=== PATIENT | female | born 1990 | race Caucasian/White ===

== ENCOUNTER → 2020-09-09 08:10 | Outpatient (BNVA) | payer OTHER, SELFPAY | PROVIDERS: PCP Internal Medicine; Visit Provider Surgery ==

== ENCOUNTER 2022-03-29 18:59 | Inpatient (IN) | payer OTHER, SELFPAY ==
--- NOTE | ~2022-03-29 | CT_ITS ---
EXAMINATION: CT ABDOMEN AND PELVIS WITHOUT CONTRAST CLINICAL INFORMATION: Abdominal pain COMPARISON: None TECHNIQUE: Multidetector volumetric imaging was performed from the superior aspect of the liver through the pubic symphysis. Sagittal and coronal reformatted images were obtained on the technologist's workstation. This CT examination was performed using dose optimization techniques as appropriate, variously including the following: *Automated exposure control *Adjustment of mA and/or kV according to patient size (this includes techniques or standardized protocols for targeted exams where dose is matched to indication/reason for exam; i.e. extremities or head) *Use of iterative reconstruction technique DLP: 1233 mGy-cm FINDINGS: LUNG BASES: The visualized lung bases are unremarkable. LIVER, GALLBLADDER, AND BILIARY TREE: The liver is normal in size, shape, and attenuation. No focal hepatic lesion or biliary ductal dilatation is present. The gallbladder has been removed. PANCREAS: Unremarkable. SPLEEN: Unremarkable. ADRENAL GLANDS: Unremarkable. KIDNEYS AND URETERS: There is a small 1 to 2 mm nonobstructing stone in the lower pole of the left kidney. Kidneys are otherwise normal. No hydronephrosis, ureteral dilatation or ureteral stone. BLADDER: Unremarkable. GASTROINTESTINAL TRACT: The cecum and right colon are slightly distended and fluid-filled. The small and large bowel are otherwise unremarkable. The appendix is not seen. There are no inflammatory changes in the right lower quadrant. ABDOMINAL WALL: No significant hernia is appreciated. LYMPH NODES: Normal. VASCULAR: Unremarkable. PELVIC VISCERA: Unremarkable. OSSEOUS STRUCTURES: Unremarkable. CT/CT abdomen pelvis wo IV con IMPRESSION: Small nonobstructing left renal stone. Slightly distended fluid-filled cecum and right colon probably representing an ileus. Fleischner guidelines were followed.
[2022-03-29 19:10] VITALS: BP 132/63; PULSE 130; RESP 18; TEMP 37.9; O2SAT 100; BMI 42.8
--- NOTE | 2022-03-29 19:13 | ECG_ITS ---
Test Reason : TACHYCARDIA Blood Pressure : / mmHG Vent. Rate : 131 BPM Atrial Rate : 131 BPM P-R Int : 154 ms QRS Dur : 076 ms QT Int : 278 ms P-R-T Axes : 028 048 -04 degrees QTc Int : 410 ms Sinus tachycardia Otherwise normal ECG No previous ECGs available Referred By: Generic ED Physician Electronically Signed By:GENEVIEVE DO
[2022-03-29] MEDS: Ondansetron ODT 4 MG TAB.RAPDIS TRANSLINGU (19:27)
[2022-03-29 19:34] LABS: MANUAL DIFF FLAG NO
[2022-03-29 19:40] LABS: Basophils Percent Auto 0.3 % (0-2); Hematocrit 37.9 % (37.0-47.0); Hemoglobin 12.3 g/dl (12.0-16.0); Imm Gran Abs Auto 0.03 X10*3/uL (0.00-0.03); Imm Gran Pct Auto 0.3 % (0.0-0.4); Lymphocytes Absolute Auto 1.6 X10*3/uL (1.2-4.9); Lymphocytes Percent Auto 17.7 % (20-40); Mean Corpuscular HGB Conc 32.5 g/dl (31.0-35.0); Mean Corpuscular Hemoglobin 27.8 pg (27.0-33.0); Mean Corpuscular Volume 85.6 fL (80.0-98.0); Mean Platelet Volume 11.2 fL (9.4-12.3); Monocytes Absolute Auto 1.2 X10*3/uL (0.1-1.2); Monocytes Percent Auto 13.3 % (2-11); Neutrophils Percent Auto 68.4 % (45-73); Platelet Count 316 X10*3/uL (160-400); Red Blood Count 4.43 X10*6/uL (4.20-5.50); Red Cell Distribution Width 13.2 % (11.0-16.0); White Blood Count 8.8 X10*3/uL (4.8-10.8)
[2022-03-29 19:42] LABS: Appearance Urine Turbid; Color Urine Dark Yellow; Glucose Urine UA Negative (Negative); Leukocyte Esterase Urine Moderate (2+) (Negative); Nitrite Urine Negative (Negative); PH 6.5 (5.0-9.0); Urine Blood Negative (Negative); Urine Ketones Trace mg/dL (Negative); Urine Protein 30 (1+) mg/dL (Neg-Trace)
[2022-03-29 19:43] LABS: UPreg QC Valid YES; Urine Pregnancy NEGATIVE (NEGATIVE)
[2022-03-29 19:53] LABS: COVID-19 Test Negative (Negative); IDNOW Serial# 16C4AD1C
[2022-03-29 19:55] LABS: Lactic Acid 0.6 mmol/L (0.5-2.0)
[2022-03-29 20:00] LABS: Alanine Aminotransferase 14 U/L (0-31); Albumin Level 4.7 g/dL (3.5-5.0); Alkaline Phosphatase 73 U/L (39-117); Anion Gap 17 (12-20); Aspartate Amino Transferase 18 U/L (5-31); Bilirubin Direct 0.5 mg/dL (0.0-0.5); Bilirubin Total 1.1 mg/dL (0.0-1.0); Blood Urea Nitrogen 9 mg/dL (9-16); Calcium 9.3 mg/dL (8.4-10.2); Carbon Dioxide 23 mmol/L (22-29); Chloride 101 mmol/L (96-108); Creatinine Clr Calc Pharmacy 109.2; Estimated Glomerular Filt Rate > 60; Glucose Random 108 mg/dL (60-115); Potassium 3.7 mmol/L (3.3-5.1); Sodium 137 mmol/L (135-145); Total Protein 7.9 g/dL (6.5-8.0)
[2022-03-29 20:02] LABS: Bacteria Urine 4+ (None Seen); Hyaline Casts Urine 0-2 /LPF (0-2); Squamous Epithelial Cell Urine >20 /HPF (0-2); UACC Culture Trigger YES; WBC Urine 21-50 /HPF (0-5)
--- NOTE | 2022-03-29 21:26 | ED_ITS ---
HPI - Abdominal Pain General Chief Complaint: Abdominal Pain Stated Complaint: back pain/fever Source: patient Mode of arrival: ambulatory Limitations: no limitations History of Present Illness HPI narrative: 31-year-old female presents with 2 weeks of back pain, shortness of breath, nausea, vomiting, palpitations, and intermittent fevers as high as 105. She has had poor p.o. intake, low urine output, and states to feel awful. She has not had the ability to come in for evaluation because she was preparing her children for school, and her works as a regional intermodal truck driver. She does not report chest pain or pressure, abdominal distention, edema, changes in vision, diarrhea, or confusion MD elicited complaint: abdominal pain and flank pain Pertinent past history: none Onset (ago): week(s) (2) Pain Consistency: constant Location: diffuse, L flank and R flank Severity: severe Pain scale (0-10): 8 Quality: aching Exacerbating factors: eating, vomiting and movement Relieving factors: nothing Associated symptoms: nausea, vomiting, fever, chills and anorexia Treatments prior to arrival: NSAIDs Related Data Allergies Allergy/AdvReac Type Severity Reaction Status Date / Time codeine AdvReac Nausea and Verified 03/29/22 19:09 Vomiting Review of Systems Review of Systems Constitutional: Positive Fever, positive Chills ENT/Mouth: No Ear Pain, No Hoarseness, No sore throat Eyes: No Eye Pain, No Swelling, No Redness, No Foreign Body Cardiovascular: No Chest Pain, positive SOB Respiratory: No Cough, positive Dyspnea Gastrointestinal: Positive Nausea, positive Vomiting, No Diarrhea, positive abdominal Pain Genitourinary: No Dysuria, No Hematuria Musculoskeletal: No joint pain, No Myalgias, No Joint Swelling Skin: No Skin lacerations, No rash Neuro: No Weakness, No Numbness, No Paresthesias, No Loss of Consciousness, No Dizziness, No Headache Psych: No Anxiety/Panic, No Depression Heme/Lymph: no easy bruising, no Lymphadenopathy Endocrine: No Polyuria, No Polydipsia Yes all other systems are reviewed and are negative [facility] Past Medical History Attestation statement: The following information was validated with the patient. Source: old records reviewed Social History Social History Advance Directives: No Advance Directives Information Provided: Yes Physical Exam ED Vital Signs: Vital Signs - 24 hr 03/29/22 19:10 03/29/22 21:33 Temperature 100.3 F 99.3 F Pulse Rate 130 H 109 H Respiratory Rate 18 20 Blood Pressure 132/63 121/63 Pulse Oximetry 100 94 Oxygen Delivery Method Room Air Room Air BMI result Body Mass Index 42.8 Appearance: Alert. Oriented X3. Moderate distress. Appears ill, febrile. Eyes: Pupils equal, round and reactive to light. Sclera nonicteric. ENT: Pharynx normal. Neck: Normal inspection. Neck supple. CVS: Tachycardic heart rate and rhythm. Apical pulse equal pulses to extremities. Respiratory: No respiratory distress. Lung sounds clear to auscultation all lobes. Abdomen: Soft and diffusely tender. Bilateral CVA tenderness. Skin: Skin warm and dry. Normal skin color. Normal skin turgor. Extremities: No lower extremity edema. Moves all extremities against resistance. Neuro: No motor deficit. No sensory deficit. Cranial nerves 2-12 intact. Course Course Course Narrative: 31-year-old female presents with 2 weeks of bilateral flank pain, shortness breath, nausea, vomiting, palpitations, and has had intermittent fevers highest being 105, treated with Tylenol and Motrin. On my evaluation, patient appears i ll, is febrile, labs were drawn while patient was in the emergency department waiting room. WBC count is normal, H&H is normal, and chemistries are normal, urinalysis indicates elevated protein, moderate to high leukocyte esterase, RBCs and white blood cells. Physical exam is indicative of bilateral CVA and diffuse tenderness palpation. Will order CT scan of abdomen pelvis to rule out pyelo, acute abdomen. Will start with L of fluid, ceftriaxone, and Toradol. Patient is not septic at this time. Lactic is 0.6. Patient is tachycardic at 130, patient does not take immunosuppressants, is not immunocompromised, does not have clotting factor deficiencies and is not on hormone replacement. She does not have any pain on inspiration, and is not hypoxic at this time. 23:30 CT scan abdomen and pelvis indicates small nonobstructing stone in the lower left pole of the kidney, no hydronephrosis or perinephric stranding. GI track shows cecum and right colon slightly distended and fluid-filled consistent with ileus. Appendix is not visualized. There are no inflammatory changes in the right lower quadrant. While CT scan is reassuring, I do feel that patient's clinical presentation is consistent with pyelonephritis. I did discuss case with the hospitalist, plan of care is to admit for UTI, pyelo, and ileus. Patient agrees to plan of care. I did order 2 L, and more pain management with morphine. Consultations Consultation #1: Zaira Time: 00:00 MDM - Abdominal Pain Differential Diagnosis Differential diagnosis: Likely abdominal pain, acute appendicitis, bowel perforation, calculus of kidney and small bowel obstruction Differential diagnosis narrative:: Pyelonephritis, hydronephrosis, acute abdomen Medical Records Attestation: I reviewed the patient's medical records. Lab Data Attestation: I reviewed the patient's lab results. Result diagrams: 03/29/22 19:25 03/29/22 19:25 Labs: Lab Results 03/29/22 03/29/22 03/29/22 Range/Units 19:25 19:25 19:25 WBC 8.8 (4.8-10.8) X10*3/uL RBC 4.43 (4.20-5.50) X10*6/uL Hgb 12.3 (12.0-16.0) g/dl Hct 37.9 (37.0-47.0) % MCV 85.6 (80.0-98.0) fL MCH 27.8 (27.0-33.0) pg MCHC 32.5 (31.0-35.0) g/dl RDW 13.2 (11.0-16.0) % Plt Count 316 (160-400) X10*3/uL MPV 11.2 (9.4-12.3) fL Immature Gran % (Auto) 0.3 (0.0-0.4) % Neut % (Auto) 68.4 (45-73) % Lymph % (Auto) 17.7 L (20-40) % [place] % (Auto) 13.3 H (2-11) % Eos % (Auto) 0.0 (0-4) % Baso % (Auto) 0.3 (0-2) % Lymph # (Auto) 1.6 (1.2-4.9) X10*3/uL [place] # (Auto) 1.2 (0.1-1.2) X10*3/uL Eos # (Auto) 0.0 (0.0-0.4) X10*3/uL Baso # (Auto) 0.0 (0.0-0.2) X10*3/uL Abs Immat Gran (auto) 0.03 (0.00-0.03) X10*3/uL Absolute Neuts (auto) 6.0 (2.0-8.3) x10*3/uL Absolute Nucleated RBC 0.000 (0.0-0.012) X10*3/uL Nucleated RBC % (auto) 0.0 (0.0-0.2) /100WBC Sodium 137 (135-145) mmol/L Potassium 3.7 (3.3-5.1) mmol/L Chloride 101 (96-108) mmol/L Carbon Dioxide 23 (22-29) mmol/L Anion Gap 17 (12-20) BUN 9 (9-16) mg/dL Creatinine 1.02 (0.5-1.4) mg/dL Estim Creat Clear Calc 109.2 Estimated GFR > 60 Random Glucose 108 (60-115) mg/dL Lactic Acid (0.5-2.0) mmol/L Calcium 9.3 (8.4-10.2) mg/dL Total Bilirubin 1.1 H (0.0-1.0) mg/dL Direct Bilirubin 0.5 (0.0-0.5) mg/dL AST 18 (5-31) U/L ALT 14 (0-31) U/L Alkaline Phosphatase 73 (39-117) U/L Total Protein 7.9 (6.5-8.0) g/dL Albumin 4.7 (3.5-5.0) g/dL Urine Color Urine Appearance Urine pH (5.0-9.0) Ur Specific [place] (1.005-1.025) Urine Protein (Neg-Trace) mg/dL Urine Glucose (UA) (Negative) mg/dL Urine Ketones (Negative) mg/dL Urine Blood (Negative) Urine Nitrite (Negative) Ur Leukocyte Esterase (Negative) Urine RBC (0-2) /HPF Urine WBC (0-5) /HPF Ur Squamous Epith Cells (0-2) /HPF Urine Bacteria (None Seen) Hyaline Casts (0-2) /LPF Urine Test (NEGATIVE) COVID-19 (MELANIE) Negative (Negative) COVID-19 Clin Com See Note 03/29/22 03/29/22 03/29/22 Range/Units 19:25 19:36 19:36 WBC (4.8-10.8) X10*3/uL RBC (4.20-5.50) X10*6/uL Hgb (12.0-16.0) g/dl Hct (37.0-47.0) % MCV (80.0-98.0) fL MCH (27.0-33.0) pg MCHC (31.0-35.0) g/dl RDW (11.0-16.0) % Plt Count (160-400) X10*3/uL MPV (9.4-12.3) fL Immature Gran % (Auto) (0.0-0.4) % Neut % (Auto) (45-73) % Lymph % (Auto) (20-40) % [place] % (Auto) (2-11) % Eos % (Auto) (0-4) % Baso % (Auto) (0-2) % Lymph # (Auto) (1.2-4.9) X10*3/uL [place] # (Auto) (0.1-1.2) X10*3/uL Eos # (Auto) (0.0-0.4) X10*3/uL Baso # (Auto) (0.0-0.2) X10*3/uL Abs Immat Gran (auto) (0.00-0.03) X10*3/uL Absolute Neuts (auto) (2.0-8.3) x10*3/uL Absolute Nucleated RBC (0.0-0.012) X10*3/uL Nucleated RBC % (auto) (0.0-0.2) /100WBC Sodium (135-145) mmol/L Potassium (3.3-5.1) mmol/L Chloride (96-108) mmol/L Carbon Dioxide (22-29) mmol/L Anion Gap (12-20) BUN (9-16) mg/dL Creatinine (0.5-1.4) mg/dL Estim Creat Clear Calc Estimated GFR Random Glucose (60-115) mg/dL Lactic Acid 0.6 (0.5-2.0) mmol/L Calcium (8.4-10.2) mg/dL Total Bilirubin (0.0-1.0) mg/dL Direct Bilirubin (0.0-0.5) mg/dL AST (5-31) U/L ALT (0-31) U/L Alkaline Phosphatase (39-117) U/L Total Protein (6.5-8.0) g/dL Albumin (3.5-5.0) g/dL Urine Color Dark Yellow Urine Appearance Turbid Urine pH 6.5 (5.0-9.0) Ur Specific [place] 1.020 (1.005-1.025) Urine Protein 30 (1+) H (Neg-Trace) mg/dL Urine Glucose (UA) Negative (Negative) mg/dL Urine Ketones Trace (Negative) mg/dL Urine Blood Negative (Negative) Urine Nitrite Negative (Negative) Ur Leukocyte Esterase Moderate (2+) H (Negative) Urine RBC 3-5 H (0-2) /HPF Urine WBC 21-50 H (0-5) /HPF Ur Squamous Epith Cells >20 (0-2) /HPF Urine Bacteria 4+ (None Seen) Hyaline Casts 0-2 (0-2) /LPF Urine Test NEGATIVE (NEGATIVE) COVID-19 (MELANIE) (Negative) COVID-19 Clin Com Imaging Data CT scan - abdomen: Attestation: I personally reviewed and interpreted this imaging study as follows: Radiologist's impression: EXAMINATION: CT ABDOMEN AND PELVIS WITHOUT CONTRAST? CLINICAL INFORMATION: Abdominal pain? COMPARISON: None? TECHNIQUE: Multidetector volumetric imaging was performed from the superior aspect of the liver through the pubic symphysis. Sagittal and coronal reformatted images were obtained on the technologist's workstation.? This CT examination was performed using dose optimization techniques as appropriate, variously including the following: *Automated exposure control *Adjustment of mA and/or kV according to patient size (this includes techniques or standardized protocols for targeted exams where dose is matched to indication/reason for exam; i.e. extremities or head) *Use of iterative reconstruction technique DLP: 1233 mGy-cm FINDINGS: LUNG BASES: The visualized lung bases are unremarkable.? LIVER, GALLBLADDER, AND BILIARY TREE: The liver is normal in size, shape, and attenuation. No focal hepatic lesion or biliary ductal dilatation is present. The gallbladder has been removed.? PANCREAS: Unremarkable.? SPLEEN: Unremarkable.? ADRENAL GLANDS: Unremarkable.? KIDNEYS AND URETERS: There is a small 1 to 2 mm nonobstructing stone in the lower pole of the left kidney. Kidneys are otherwise normal. No hydronephrosis, ureteral dilatation or ureteral stone. BLADDER: Unremarkable.? GASTROINTESTINAL TRACT: The cecum and right colon are slightly distended and fluid-filled. The small and large bowel are otherwise unremarkable. The appendix is not seen. There are no inflammatory changes in the right lower quadrant.? ABDOMINAL WALL: No significant hernia is appreciated.? LYMPH NODES: Normal. VASCULAR: Unremarkable. PELVIC VISCERA: Unremarkable.? OSSEOUS STRUCTURES: Unremarkable.? CT/CT abdomen pelvis wo IV con IMPRESSION: Small nonobstructing left renal stone. Slightly distended fluid-filled cecum and right colon probably representing an ileus.? ? Fleischner guidelines were followed. ECG Data Attestation: I personally reviewed and interpreted this ECG as follows: ECG interpretation date: 03/29/22 ECG interpretation time: 19:18 Prior ECG tracings: not available for review Interpretation: Vent. rate 131 BPM [place] interval 154 ms QRS duration 76 ms QT/QTc 278/410 ms P-R-T axes 28 48 -4 Sinus tachycardia Otherwise normal ECG No previous ECGs available Discharge Plan Discharge Patient Disposition: Admitted As Inpatient
[2022-03-29 21:33] VITALS: BP 121/63; PULSE 109; RESP 20; TEMP 37.4; O2SAT 94
[2022-03-29] MEDS: Ketorolac Tromethamine 30 MG/ML VIAL IVPUSH (21:47)
[2022-03-29] MEDS: ondansetron HCL 4 MG/2 ML VIAL IVPUSH (21:47)
[2022-03-29] MEDS: cefTRIAXone sodium 1 GM in 0.9 % Sodium Chloride 50 ML IV (21:47)
[2022-03-29] MEDS: 0.9 % Sodium Chloride 1,000 ML 999 ML IVCONT (21:47)
--- NOTE | 2022-03-29 23:52 | PM.IMHP ---
History of Present Illness Date of Service: 03/29/22 Chief Complaint: flank pain 31-year-old female with a past medical history of obesity, bipolar disorder presented to the hospital today with a chief complaint of left flank pain. Patient reports that for the past few days he has been having left flank pain which has been gradually worsening denies any associated nausea vomiting. Mentions her urine is dark. Denies any burning or frequency. Denies any fevers at home. Mentions that her pain is 10/10 in intensity, nonradiating. As the symptoms were not improving her decided to come to the ER for further evaluation. Also reports subjective fevers. Denies any palpitations. Denies any chest pains or lightheadedness. Review of all other systems is negative except mentioned above ER course: Per ER team patient noted to have left flank tenderness; urinalysis abnormal consistent with UTI; CT scan showed kidney stone- nonobstructing also noted to have ileus. Admitted for further management. PMFSH Pertinent family history: reviewed Social History Household Members: Family Household Members Other:: [employer]OU[employer] CHILDREN Housing: House Do you presently have visiting nurse or other home services: No Patient Tobacco Use Status: Never used Tobacco Smoked in Last 30 Days: No e-Cigarette/Vaping Use: Never Used Second Hand Smoke Exposure: No Use of substances other than those prescribed or required for medical reasons: No Currently Displaying Signs/Symptoms of Drug Intoxication Withdrawal: No Any prior treatment program specific to substance use: No Have you been hit, kicked, punched, or otherwise hurt by someone within the past year? If so, by whom?: No Do you feel safe in your current relationship?: Yes Is there a partner from a previous relationship who is making you feel unsafe now?: No Are you made to feel afraid or neglected: No Advance Directives: No Advance Directives Information Provided: Yes Do you have thoughts of harming others: None Do you have a plan to hurt others: No Plan Recently lost weight without trying: No Eating poorly because of decreased appetite: No Nutrition Risks: No Nutritional Risk Patient : No : No Poor oral hygiene: No Meds Allergies Allergy/AdvReac Type Severity Reaction Status Date / Time codeine AdvReac Nausea and Verified 03/29/22 19:09 Vomiting Home Medications Medication Instructions Recorded Confirmed Last Taken Type ascorbic acid (vitamin C) 250 mg 1 tab PO 03/30/22 Unknown History tablet (Vitamin C) bupropion HCl 150 mg 24 hr tablet, 1 tab PO DAILY 03/30/22 03/30/22 Unknown History extended release cyclobenzaprine 10 mg tablet 1 tab PO TID PRN muscle spasm 03/30/22 03/30/22 Unknown History diclofenac sodium 50 mg 1 tab PO TID 03/30/22 03/30/22 Unknown History tablet,delayed release ferrous sulfate 325 mg (65 mg 1 tab PO TID 03/30/22 03/30/22 Unknown History iron) tablet hydroxyzine HCl 25 mg tablet 1 tab PO BID PRN anxiety 03/30/22 03/30/22 Unknown History lamotrigine 200 mg tablet 1 tab PO DAILY 03/30/22 03/30/22 Unknown History trazodone 50 mg tablet 0.5 tab PO BEDTIME 03/30/22 03/30/22 Unknown History Physical Exam Vital Signs and Narrative: Vital Signs: Last Vital Signs Temp 99.3 F 03/29/22 21:33 Pulse 109 H 03/29/22 21:33 Resp 20 03/29/22 21:33 BP 121/63 03/29/22 21:33 Pulse Ox 94 03/29/22 21:33 O2 Del Method 03/29/22 21:33 BMI result Body Mass Index 42.8 Gen: Appears be in no acute distress HEENT: NCAT, Moist mucosa. Pulmonary: Vesicular breath sounds, fair air entry CVS: Normal S1-S2 Abdomen: BS+, Soft, tender in the left flank Extremities: Warm well perfused Neuro: Alert and awake. Results Labs CBC and Chem 7: 03/29/22 19:25 03/29/22 19:25 Labs: Laboratory Results - last 24 hr 03/29/22 03/29/22 03/29/22 19:25 19:25 19:25 MCV 85.6 MCH 27.8 MCHC 32.5 RDW 13.2 Plt Count 316 MPV 11.2 Immature Gran % (Auto) 0.3 Neut % (Auto) 68.4 Lymph % (Auto) 17.7 L [place] % (Auto) 13.3 H Eos % (Auto) 0.0 Baso % (Auto) 0.3 Lymph # (Auto) 1.6 [place] # (Auto) 1.2 Eos # (Auto) 0.0 Baso # (Auto) 0.0 Abs Immat Gran (auto) 0.03 Absolute Neuts (auto) 6.0 Absolute Nucleated RBC 0.000 Nucleated RBC % (auto) 0.0 Anion Gap 17 Estim Creat Clear Calc 109.2 Estimated GFR > 60 Random Glucose 108 Lactic Acid Calcium 9.3 Total Bilirubin 1.1 H Direct Bilirubin 0.5 AST 18 ALT 14 Alkaline Phosphatase 73 Total Protein 7.9 Albumin 4.7 Urine Color Urine Appearance Urine pH Ur Specific [place] Urine Protein Urine Glucose (UA) Urine Ketones Urine Blood Urine Nitrite Ur Leukocyte Esterase Urine RBC Urine WBC Ur Squamous Epith Cells Urine Bacteria Hyaline Casts Urine Test COVID-19 (MELANIE) Negative COVID-19 Clin Com See Note 03/29/22 03/29/22 03/29/22 19:25 19:36 19:36 MCV MCH MCHC RDW Plt Count MPV Immature Gran % (Auto) Neut % (Auto) Lymph % (Auto) [place] % (Auto) Eos % (Auto) Baso % (Auto) Lymph # (Auto) [place] # (Auto) Eos # (Auto) Baso # (Auto) Abs Immat Gran (auto) Absolute Neuts (auto) Absolute Nucleated RBC Nucleated RBC % (auto) Anion Gap Estim Creat Clear Calc Estimated GFR Random Glucose Lactic Acid 0.6 Calcium Total Bilirubin Direct Bilirubin AST ALT Alkaline Phosphatase Total Protein Albumin Urine Color Dark Yellow Urine Appearance Turbid Urine pH 6.5 Ur Specific [place] 1.020 Urine Protein 30 (1+) H Urine Glucose (UA) Negative Urine Ketones Trace Urine Blood Negative Urine Nitrite Negative Ur Leukocyte Esterase Moderate (2+) H Urine RBC 3-5 H Urine WBC 21-50 H Ur Squamous Epith Cells >20 Urine Bacteria 4+ Hyaline Casts 0-2 Urine Test NEGATIVE COVID-19 (MELANIE) COVID-19 Clin Com Imaging Radiologist's Impressions: Impressions Abdomen/Pelvis CT 03/29/22 22:12 IMPRESSION: Small nonobstructing left renal stone. Slightly distended fluid-filled cecum and right colon probably representing an ileus. Fleischner guidelines were followed. Assessment and Plan (1) UTI (urinary tract infection): Status: Acute (2) Renal calculi: Status: Acute Plan 31-year-old female with a past medical history of obesity, bipolar disorder presented to the hospital today with a chief complaint of left flank pain. noted to have renal calculus/ UTI. Admitted for further management. Renal calculus: Pain control. Nonobstructing stone. urology consult. UTI: Continue ceftriaxone. Follow up cultures. Ileus: Supportive care. Gentle IV fluids. NPO. General surgery consult. History of bipolar disorder: Continue home bupropion, lamotrigine DVT prophylaxis: Subcu heparin Code status: Full code Quality Stroke Does the patient have a stroke diagnosis?: No VTE Prior VTE?: No VTE Risk Level:: Medical - moderate - high VTE Device Contraindication: Treatment Not Indicated VTE Drug Contraindication: N/A - Med Ordered
[2022-03-30] VITALS (8 sets, daily range): BP systolic 103–129; BP diastolic 55–70; PULSE 93–106; RESP 16–18; TEMP 36.1–37.6; O2SAT 94–100; BMI 43.1
[2022-03-30] MEDS: 0.9 % Sodium Chloride 1,000 ML 999 ML IVCONT (01:00)
[2022-03-30] MEDS: Morphine Sulfate 4 MG/ML CARTRIDGE IVPUSH (01:01)
[2022-03-30] MEDS: HYDROmorphone HCl 1 MG/ML SYRINGE 0.5 MG IVPUSH ×5 (01:44→22:06)
--- NOTE | 2022-03-30 02:14 | PC.NURSE ---
report to Luzmaria MONSIVAIS. Relayed info r/t delay on IVF. Hospitalist texted r/t continued pain. aware pt transferring to in patient unit.
[2022-03-30] MEDS: Dextrose 5 % and 0.45 % NaCl 1,000 ML 100 ML IVCONT (02:53)
--- NOTE | 2022-03-30 07:18 | PHA.MEDREC ---
Pharmacy Consult ? Medication Reconciliation Pharmacy has completed the medication reconciliation. Doubled checked med rec done overnight
--- NOTE | 2022-03-30 08:19 | P.CONGS_ITS ---
History of Present Illness Consult details Consult date: 03/30/22 Narrative: 31-year-old female referred for ileus on CT scan. She came to the ER yesterday because of work left flank pain. This apparently had been progressively worsening during the day. She denied any GI complaints. She denies any vomiting nor diarrhea. She had a CAT scan showing a nonobstructing stone in question of an ileus. She however had a lot of WBCs on her urine analysis consistent with UTI. Currently she denies any abdominal pain. Review of Systems Constitutional: Constitutional: Denies chills and Denies fever(s) Cardiovascular: Cardiovascular: Denies chest pain, Denies dyspnea and Denies dyspnea on exertion Respiratory: Respiratory: Denies cough, Denies dyspnea and Denies dyspnea on e xertion Gastrointestinal: Gastrointestinal: Denies hematochezia and Denies change in bowel habits Genitourinary: Genitourinary: Denies hematuria Musculoskeletal: Musculoskeletal: Denies back pain and Denies limited range of motion Neurologic: Denies focal weakness and Denies convulsions Psychiatric: Psychiatric: Denies depression and Denies mood swings PMFSH Past Medical History Medical History (Updated 03/30/22 @ 08:21 by Eric Gallagher MD) Ileus Social History Social History Household Members: Family Household Members Other:: SPOUSE AND CHILDREN Housing: House Do you presently have visiting nurse or other home services: No Patient Tobacco Use Status: Never used Tobacco Smoked in Last 30 Days: No e-Cigarette/Vaping Use: Never Used Second Hand Smoke Exposure: No Use of substances other than those prescribed or required for medical reasons: No Currently Displaying Signs/Symptoms of Drug Intoxication Withdrawal: No Any prior treatment program specific to substance use: No Have you been hit, kicked, punched, or otherwise hurt by someone within the past year? If so, by whom?: No Do you feel safe in your current relationship?: Yes Is there a partner from a previous relationship who is making you feel unsafe now?: No Are you made to feel afraid or neglected: No Advance Directives: No Advance Directives Information Provided: Yes Do you have thoughts of harming others: None Do you have a plan to hurt others: No Plan Recently lost weight without trying: No Eating poorly because of decreased appetite: No Nutrition Risks: No Nutritional Risk Patient : No : No Poor oral hygiene: No Meds Allergies Allergy/AdvReac Type Severity Reaction Status Date / Time codeine AdvReac Nausea and Verified 03/29/22 19:09 Vomiting Active Medications: Current Medications Acetaminophen (Acetaminophen 325 Mg Tablet) 650 mg PO Q6H PRN PRN Reason: Pain, Mild (Pain Scale 1-3) Bupropion HCl (Bupropion Hcl Xl 150 Mg Tab.Er.24h) 150 mg PO DAILY [facility] Heparin Sodium (Porcine) (Heparin Sodium,Porcine 5,000 Unit/Ml Vial) 5,000 unit SUBCUT Q8H [facility] Last Admin: 03/30/22 00:15 Dose: Not Given Hydromorphone HCl (Hydromorphone Hcl 1 Mg/Ml Syringe) 0.5 mg IVPUSH Q4H PRN; Protocol PRN Reason: Pain, Severe (Pain Scale 7-10) Last Admin: 03/30/22 05:19 Dose: 0.5 mg Hydroxyzine HCl (Hydroxyzine Hcl 25 Mg Tablet) 25 mg PO BID PRN PRN Reason: anxiety Dextrose/Sodium Chloride (D51/2ns) 1,000 mls @ 100 mls/hr IVCONT .Q10H [facility] Last Admin: 03/30/22 02:53 Dose: 100 mls/hr Ceftriaxone Sodium 1 gm/ (Sodium Chloride) 50 mls @ 100 mls/hr IV Q24H [facility] Lamotrigine (Lamotrigine 100 Mg Tablet) 200 mg PO DAILY [facility] Melatonin (Melatonin 3 Mg Tablet) 6 mg PO BEDTIME PRN PRN Reason: Insomnia Senna (Sennosides 8.6 Mg Tablet) 17.2 mg PO BEDTIME PRN PRN Reason: Constipation Sodium Chloride (0.9 % Sodium Chloride Flush 3 Ml Syringe) 3 ml IVFLUSH QSHIFT [facility] Last Admin: 03/30/22 00:00 Dose: Not Given Trazodone HCl (Trazodone Hcl 25 Mg Halftab) 25 mg PO BEDTIME [facility] Home Medications Medication Instructions Recorded Confirmed Last Taken Type bupropion HCl 150 mg 24 hr tablet, 1 tab PO DAILY 03/30/22 03/30/22 Unknown History extended release cyclobenzaprine 10 mg tablet 1 tab PO TID PRN muscle spasm 03/30/22 03/30/22 Unknown History diclofenac sodium 50 mg 1 tab PO TID 03/30/22 03/30/22 Unknown History tablet,delayed release ferrous sulfate 325 mg (65 mg 1 tab PO TID 03/30/22 03/30/22 Unknown History iron) tablet hydroxyzine HCl 25 mg tablet 1 tab PO BID PRN anxiety 03/30/22 03/30/22 Unknown History lamotrigine 200 mg tablet 1 tab PO DAILY 03/30/22 03/30/22 Unknown History trazodone 50 mg tablet 0.5 tab PO BEDTIME 03/30/22 03/30/22 Unknown History Physical Exam Vital Signs: Vital Signs: Last Vital Signs Temp 97.9 F 03/30/22 07:08 Pulse 94 03/30/22 07:08 Resp 16 03/30/22 07:08 BP 103/59 L 03/30/22 07:08 Pulse Ox 97 03/30/22 07:08 O2 Del Method 03/30/22 01:10 BMI result Body Mass Index 43.1 Const: Other: Obese General: comfortable and no acute distress Orientation/consciousness: patient oriented x3 Neck: Neck: Yes no lymphadenopathy Resp: Auscultation: clear to auscultation bilaterally Cardio: Rhythm: regular rhythm GI: Palpation (GI): Soft to palpation, nontender and no guarding Neuro: General: patient oriented x3 Results Labs Result diagrams: 03/29/22 19:25 03/29/22 19:25 Labs: Abnormal lab results 03/29/22 03/29/22 03/29/22 Range/Units 19:25 19:25 19:36 Lymph % (Auto) 17.7 L (20-40) % [place] % (Auto) 13.3 H (2-11) % Total Bilirubin 1.1 H (0.0-1.0) mg/dL Urine Protein 30 (1+) H (Neg-Trace) mg/dL Ur Leukocyte Esterase Moderate (2+) H (Negative) Urine RBC 3-5 H (0-2) /HPF Urine WBC 21-50 H (0-5) /HPF Short CBC 03/29/22 Range/Units 19:25 WBC 8.8 (4.8-10.8) X10*3/uL Hgb 12.3 (12.0-16.0) g/dl Hct 37.9 (37.0-47.0) % Plt Count 316 (160-400) X10*3/uL BMP 03/29/22 19:25 Sodium 137 Potassium 3.7 Chloride 101 Carbon Dioxide 23 BUN 9 Creatinine 1.02 Calcium 9.3 Liver Function 03/29/22 Range/Units 19:25 Total Bilirubin 1.1 H (0.0-1.0) mg/dL Direct Bilirubin 0.5 (0.0-0.5) mg/dL AST 18 (5-31) U/L ALT 14 (0-31) U/L Alkaline Phosphatase 73 (39-117) U/L Albumin 4.7 (3.5-5.0) g/dL Urine 03/29/22 03/29/22 Range/Units 19:36 19:36 Urine Color Dark Yellow Urine Appearance Turbid Urine pH 6.5 (5.0-9.0) Ur Specific [place] 1.020 (1.005-1.025) Urine Protein 30 (1+) H (Neg-Trace) mg/dL Urine Glucose (UA) Negative (Negative) mg/dL Urine Test NEGATIVE (NEGATIVE) All other labs normal. Laboratory Results WBC 8.8 X10*3/uL (4.8-10.8) 03/29/22 19:25 RBC 4.43 X10*6/uL (4.20-5.50) 03/29/22 19:25 Hgb 12.3 g/dl (12.0-16.0) 03/29/22 19:25 Hct 37.9 % (37.0-47.0) 03/29/22 19:25 MCV 85.6 fL (80.0-98.0) 03/29/22 19:25 MCH 27.8 pg (27.0-33.0) 03/29/22 19:25 MCHC 32.5 g/dl (31.0-35.0) 03/29/22 19:25 RDW 13.2 % (11.0-16.0) 03/29/22 19:25 Plt Count 316 X10*3/uL (160-400) 03/29/22 19:25 MPV 11.2 fL (9.4-12.3) 03/29/22 19:25 Immature Gran % (Auto) 0.3 % (0.0-0.4) 03/29/22 19:25 Neut % (Auto) 68.4 % (45-73) 03/29/22 19:25 Lymph % (Auto) 17.7 % (20-40) L 03/29/22 19:25 [place] % (Auto) 13.3 % (2-11) H 03/29/22 19:25 Eos % (Auto) 0.0 % (0-4) 03/29/22 19:25 Baso % (Auto) 0.3 % (0-2) 03/29/22 19:25 Lymph # (Auto) 1.6 X10*3/uL (1.2-4.9) 03/29/22 19:25 [place] # (Auto) 1.2 X10*3/uL (0.1-1.2) 03/29/22 19: Eos # (Auto) 0.0 X10*3/uL (0.0-0.4) 03/29/22 19:25 Baso # (Auto) 0.0 X10*3/uL (0.0-0.2) 03/29/22 19:25 Abs Immat Gran (auto) 0.03 X10*3/uL (0.00-0.03) 03/29/22:25 Absolute Neuts (auto) 6.0 x10*3/uL (2.0-8.3) 03/29/22 19:25 Absolute Nucleated RBC 0.000 X10*3/uL (0.0-0.012) 03/29/22 19: Nucleated RBC % (auto) 0.0 /100WBC (0.0-0.2) 03/29/22 19:25 Sodium 137 mmol/L (135-145) 03/29/22 19:25 Potassium 3.7 mmol/L (3.3-5.1) 03/29/22 19:25 Chloride 101 mmol/L (96-108) 03/29/22 19:25 Carbon Dioxide 23 mmol/L (22-29) 03/29/22 19:25 Anion Gap 17 (12-20) 03/29/22 19:25 BUN 9 mg/dL (9-16) 03/29/22 19:25 Creatinine 1.02 mg/dL (0.5-1.4) 03/29/22 19:25 Estim Creat Clear Calc 109.2 03/29/22 19:25 Estimated GFR > 60 03/29/22 19:25 Random Glucose 108 mg/dL (60-115) 03/29/22 19:25 Lactic Acid 0.6 mmol/L (0.5-2.0) 03/29/22 19:25 Calcium 9.3 mg/dL (8.4-10.2) 03/29/22 19:25 Total Bilirubin 1.1 mg/dL (0.0-1.0) H 03/29/22 19:25 Direct Bilirubin 0.5 mg/dL (0.0-0.5) 03/29/22 19:25 AST 18 U/L (5-31) 03/29/22 19:25 ALT 14 U/L (0-31) 03/29/22 19:25 Alkaline Phosphatase 73 U/L (39-117) 03/29/22 19:25 Total Protein 7.9 g/dL (6.5-8.0) 03/29/22 19:25 Albumin 4.7 g/dL (3.5-5.0) 03/29/22 19:25 Urine Color Dark Yellow 03/29/22 19:36 Urine Appearance Turbid 03/29/22 19:36 Urine pH 6.5 (5.0-9.0) 03/29/22 19:36 Ur Specific [place] 1.020 (1.005-1.025) 03/29/22 19:36 Urine Protein 30 (1+) mg/dL (Neg-Trace) H 03/29/22 19:36 Urine Glucose (UA) Negative mg/dL (Negative) 03/29/22 19:36 Urine Ketones Trace mg/dL (Negative) 03/29/22 19:36 Urine Blood Negative (Negative) 03/29/22 19:36 Urine Nitrite Negative (Negative) 03/29/22 19:36 Ur Leukocyte Esterase Moderate (2+) (Negative) H 03/29/22 19:36 Urine RBC 3-5 /HPF (0-2) H 03/29/22 19:36 Urine WBC 21-50 /HPF (0-5) H 03/29/22 19:36 Ur Squamous Epith Cells >20 /HPF (0-2) 03/29/22 19:36 Urine Bacteria 4+ (None Seen) 03/29/22 19:36 Hyaline Casts 0-2 /LPF (0-2) 03/29/22 19:36 Urine Test NEGATIVE (NEGATIVE) 03/29/22 19:36 COVID-19 (MELANIE) Negative (Negative) 03/29/22 19:25 COVID-19 Clin Com See Note 03/29/22 19:25 Impressions Abdomen/Pelvis CT 03/29/22 22:12 IMPRESSION: Small nonobstructing left renal stone. Slightly distended fluid-filled cecum and right colon probably representing an ileus. Fleischner guidelines were followed. Assessment and Plan (1) Ileus: Status: Acute I have reviewed her CAT scan and this shows some mild dilatation of the small colon with some fluid suggestive of ileus. She has a very benign exam. She is not complaining of any abdominal pain at this time. I would recommend starting her on clear liquids and this may be advanced as tolerated. Control of her urinary tract infection will be to resolution of any ileus. I have also encouraged her to get out of bed and ambulate. Thank you for the courtesy of the referral. Procedures Date of Service Date of Service: 03/30/22
[2022-03-30 08:32] LABS: MANUAL DIFF FLAG NO
[2022-03-30 08:40] LABS: Basophils Percent Auto 0.3 % (0-2); Eosinophils Percent Auto 0.2 % (0-4); Hematocrit 33.1 % (37.0-47.0); Hemoglobin 10.4 g/dl (12.0-16.0); Imm Gran Abs Auto 0.02 X10*3/uL (0.00-0.03); Imm Gran Pct Auto 0.3 % (0.0-0.4); Lymphocytes Absolute Auto 1.4 X10*3/uL (1.2-4.9); Lymphocytes Percent Auto 23.4 % (20-40); Mean Corpuscular HGB Conc 31.4 g/dl (31.0-35.0); Mean Corpuscular Hemoglobin 27.7 pg (27.0-33.0); Mean Corpuscular Volume 88.3 fL (80.0-98.0); Mean Platelet Volume 10.6 fL (9.4-12.3); Neutrophils Absolute Auto 3.5 x10*3/uL (2.0-8.3); Neutrophils Percent Auto 59.8 % (45-73); Platelet Count 229 X10*3/uL (160-400); Red Blood Count 3.75 X10*6/uL (4.20-5.50); Red Cell Distribution Width 13.5 % (11.0-16.0); White Blood Count 5.9 X10*3/uL (4.8-10.8)
[2022-03-30] MEDS: lamoTRIgine 100 MG TABLET 200 MG PO (08:46)
[2022-03-30] MEDS: buPROPion HCl XL 150 MG TAB.ER.24H PO (08:46)
[2022-03-30] MEDS: Heparin Sodium,Porcine 5,000 UNIT/ML VIAL 5000 UNIT SUBCUT ×3 (08:47→23:41)
[2022-03-30 09:17] LABS: Anion Gap 11 (12-20); Blood Urea Nitrogen 8 mg/dL (9-16); Carbon Dioxide 25 mmol/L (22-29); Chloride 107 mmol/L (96-108); Creatinine Clr Calc Pharmacy 155.3; Estimated Glomerular Filt Rate > 60; Glucose Random 125 mg/dL (60-115); Potassium 4.4 mmol/L (3.3-5.1); Sodium 139 mmol/L (135-145)
[2022-03-30 09:25] LABS: Calcium 7.9 mg/dL (8.4-10.2)
--- NOTE | 2022-03-30 11:26 | MHC.CM.PN ---
PATIENT REPORTS SHE LIVES WITH AND CHILDREN INDEPENDENT AT HOME AND COMMUNITY DENIES USE OF DME OR RECEIVING HOME SERVICES SWAPNIL RAUSCH[employer]D[facility] X1 MRNA PCP: JAVIER GUARDADO HCP- EDUCATED, DECLINED TO COMPLETE AT THIS TIME SPOUSE TO TRANSPORT HOME
--- NOTE | 2022-03-30 11:54 | P.PNIM_ITS ---
Subjective Subjective Date of Service: 03/30/22 Interval History: cc: left flank pain interval history: improved with pain meds Cardiovascular Cardiovascular: Reports no additional cardiovascular complaints Respiratory Respiratory: Reports no additional respiratory complaints Physical Exam Vital Signs: Vital Signs: Last Vital Signs Temp 97 F 03/30/22 11:07 Pulse 99 03/30/22 11:07 Resp 17 03/30/22 11:07 BP 121/64 03/30/22 11:07 Pulse Ox 100 03/30/22 11:07 O2 Del Method 03/30/22 11:07 BMI result Body Mass Index 43.1 General: AO X 3, no acute distress Resp: CTA bilateral, no accessory muscles used CVS: S1,S2,RRR GI: soft, non tender, non distended Neuro: motor grossly intact, alert Psych: appropriate affect, appropriate insight Objective Data Active Medications Acetaminophen (Acetaminophen 325 Mg Tablet) 650 mg PO Q6H PRN PRN Reason: Pain, Mild (Pain Scale 1-3) Bupropion HCl (Bupropion Hcl Xl 150 Mg Tab.Er.24h) 150 mg PO DAILY [facility] Last Admin: 03/30/22 08:46 Dose: 150 mg Documented By: MARCO Heparin Sodium (Porcine) (Heparin Sodium,Porcine 5,000 Unit/Ml Vial) 5,000 unit SUBCUT Q8H [facility] Last Admin: 03/30/22 08:47 Dose: 5,000 unit Documented By: MARCO Hydromorphone HCl (Hydromorphone Hcl 1 Mg/Ml Syringe) 0.5 mg IVPUSH Q4H PRN; Protocol PRN Reason: Pain, Severe (Pain Scale 7-10) Last Admin: 03/30/22 11:28 Dose: 0.5 mg Documented By: MARCO Hydroxyzine HCl (Hydroxyzine Hcl 25 Mg Tablet) 25 mg PO BID PRN PRN Reason: anxiety Dextrose/Sodium Chloride (D51/2ns) 1,000 mls @ 100 mls/hr IVCONT .Q10H [facility] Last Admin: 03/30/22 11:45 Dose: Not Given Documented By: MARCO Non-Admin Reason: IV Running Ceftriaxone Sodium 1 gm/ (Sodium Chloride) 50 mls @ 100 mls/hr IV Q24H [facility] Lamotrigine (Lamotrigine 100 Mg Tablet) 200 mg PO DAILY [facility] Last Admin: 03/30/22 08:46 Dose: 200 mg Documented By: MARCO Melatonin (Melatonin 3 Mg Tablet) 6 mg PO BEDTIME PRN PRN Reason: Insomnia Senna (Sennosides 8.6 Mg Tablet) 17.2 mg PO BEDTIME PRN PRN Reason: Constipation Sodium Chloride (0.9 % Sodium Chloride Flush 3 Ml Syringe) 3 ml IVFLUSH QSHIFT [facility] Last Admin: 03/30/22 08:48 Dose: Not Given Documented By: MARCO Non-Admin Reason: IV Running Trazodone HCl (Trazodone Hcl 25 Mg Halftab) 25 mg PO BEDTIME [facility] Labs CBC & Chem 7: 03/30/22 08:26 03/30/22 08:26 Labs: Laboratory Results - last 24 hr 03/29/22 03/29/22 03/29/22 19:25 19:25 19:25 MCV 85.6 MCH 27.8 MCHC 32.5 RDW 13.2 Plt Count 316 MPV 11.2 Immature Gran % (Auto) 0.3 Neut % (Auto) 68.4 Lymph % (Auto) 17.7 L [place] % (Auto) 13.3 H Eos % (Auto) 0.0 Baso % (Auto) 0.3 Lymph # (Auto) 1.6 [place] # (Auto) 1.2 Eos # (Auto) 0.0 Baso # (Auto) 0.0 Abs Immat Gran (auto) 0.03 Absolute Neuts (auto) 6.0 Absolute Nucleated RBC 0.000 Nucleated RBC % (auto) 0.0 Anion Gap 17 Estim Creat Clear Calc 109.2 Estimated GFR > 60 Random Glucose 108 Lactic Acid Calcium 9.3 Total Bilirubin 1.1 H Direct Bilirubin 0.5 AST 18 ALT 14 Alkaline Phosphatase 73 Total Protein 7.9 Albumin 4.7 Urine Color Urine Appearance Urine pH Ur Specific [place] Urine Protein Urine Glucose (UA) Urine Ketones Urine Blood Urine Nitrite Ur Leukocyte Esterase Urine RBC Urine WBC Ur Squamous Epith Cells Urine Bacteria Hyaline Casts Urine Test COVID-19 (MELANIE) Negative COVID-19 Clin Com See Note 03/29/22 03/29/22 03/29/22 19:25 19:36 19:36 MCV MCH MCHC RDW Plt Count MPV Immature Gran % (Auto) Neut % (Auto) Lymph % (Auto) [place] % (Auto) Eos % (Auto) Baso % (Auto) Lymph # (Auto) [place] # (Auto) Eos # (Auto) Baso # (Auto) Abs Immat Gran (auto) Absolute Neuts (auto) Absolute Nucleated RBC Nucleated RBC % (auto) Anion Gap Estim Creat Clear Calc Estimated GFR Random Glucose Lactic Acid 0.6 Calcium Total Bilirubin Direct Bilirubin AST ALT Alkaline Phosphatase Total Protein Albumin Urine Color Dark Yellow Urine Appearance Turbid Urine pH 6.5 Ur Specific [place] 1.020 Urine Protein 30 (1+) H Urine Glucose (UA) Negative Urine Ketones Trace Urine Blood Negative Urine Nitrite Negative Ur Leukocyte Esterase Moderate (2+) H Urine RBC 3-5 H Urine WBC 21-50 H Ur Squamous Epith Cells >20 Urine Bacteria 4+ Hyaline Casts 0-2 Urine Test NEGATIVE COVID-19 (MELANIE) COVID-19 [employer]ics 03/30/22 03/30/22 08:26 08:26 MCV 88.3 MCH 27.7 MCHC 31.4 RDW 13.5 Plt Count 229 D MPV 10.6 Immature Gran % (Auto) 0.3 Neut % (Auto) 59.8 Lymph % (Auto) 23.4 [place] % (Auto) 16.0 H Eos % (Auto) 0.2 Baso % (Auto) 0.3 Lymph # (Auto) 1.4 [place] # (Auto) 1.0 Eos # (Auto) 0.0 Baso # (Auto) 0.0 Abs Immat Gran (auto) 0.02 Absolute Neuts (auto) 3.5 Absolute Nucleated RBC 0.000 Nucleated RBC % (auto) 0.0 Anion Gap 11 L Estim Creat Clear Calc 155.3 Estimated GFR > 60 Random Glucose 125 H Lactic Acid Calcium 7.9 L D Total Bilirubin Direct Bilirubin AST ALT Alkaline Phosphatase Total Protein Albumin Urine Color Urine Appearance Urine pH Ur Specific [place] Urine Protein Urine Glucose (UA) Urine Ketones Urine Blood Urine Nitrite Ur Leukocyte Esterase Urine RBC Urine WBC Ur Squamous Epith Cells Urine Bacteria Hyaline Casts Urine Test COVID-19 (MELANIE) COVID-19 [place] Com Microbiology Microbiology Results: Microbiology 03/29/22 20:00 Urine Culture - Preliminary Urine clean catch - Urine amador top Gram negative antonette Assessment and Plan (1) Abdominal pain: Status: Acute Plan 31 F presented with left flank pain and fevers, CT imaging with nonopbstructing left renal stone and question of ileus acute left pyelonephritis associated with non obstructing stone rocephin, cultures, imaging with suspicion of ileus asymptomatic advance to clears bipolar buproprion, lamictal vte prophylaxis - hep sq full code reason for continued hospitalization: ongoing pain, iv abx coverage until cultures Quality Stroke Does the patient have a stroke diagnosis?: No VTE Prior VTE?: No VTE Risk Level:: Medical - moderate - high VTE Device Contraindication: Treatment Not Indicated VTE Drug Contraindication: N/A - Med Ordered
[2022-03-30] MEDS: Acetaminophen 325 MG TABLET 650 MG PO (13:49)
[2022-03-30] MEDS: 0.9 % Sodium Chloride Flush 3 ML SYRINGE IVFLUSH ×2 (16:16→22:06)
[2022-03-30] MEDS: cefTRIAXone sodium 1 GM in 0.9 % Sodium Chloride 50 ML IV (22:06)
[2022-03-30] MEDS: traZODone HCL 25 MG HALFTAB PO (22:07)
[2022-03-31 04:00] VITALS: BP 125/60; PULSE 87; RESP 17; TEMP 37.1; O2SAT 98
[2022-03-31 06:56] LABS: Hematocrit 33.6 % (37.0-47.0); Hemoglobin 10.5 g/dl (12.0-16.0); Mean Corpuscular HGB Conc 31.3 g/dl (31.0-35.0); Mean Corpuscular Hemoglobin 27.6 pg (27.0-33.0); Mean Corpuscular Volume 88.4 fL (80.0-98.0); Mean Platelet Volume 11.7 fL (9.4-12.3); Platelet Count 268 X10*3/uL (160-400); Red Cell Distribution Width 13.3 % (11.0-16.0); White Blood Count 5.8 X10*3/uL (4.8-10.8)
[2022-03-31 07:07] LABS: Anion Gap 15 (12-20); Blood Urea Nitrogen 5 mg/dL (9-16); Calcium 8.2 mg/dL (8.4-10.2); Carbon Dioxide 24 mmol/L (22-29); Chloride 104 mmol/L (96-108); Creatinine Clr Calc Pharmacy 157.5; Estimated Glomerular Filt Rate > 60; Glucose Fasting 88 mg/dL (60-99); Potassium 3.9 mmol/L (3.3-5.1); Sodium 139 mmol/L (135-145)
[2022-03-31 07:41] VITALS: BP 114/57; PULSE 88; RESP 16; TEMP 36.5; O2SAT 96
--- NOTE | 2022-03-31 07:55 | P.CDIC_ITS ---
CDI Concurrent Query Documentation Clarification: PHYSICIAN'S DOCUMENTATION REQUEST Date of Query: 03/31/22 0756 Patient Name: April Lake Admit Date: 03/29/22 Dear Doctor, A review of the medical record indicates additional documentation may be needed. Please review below and update the documentation accordingly. Risk Factors/Clinical Indicators/Treatments Nursing notes Height & Weight 03/30: BMI 43.1 Extreme obesity class III If possible, please provide an associated diagnosis related to the abnormal BMI, such as: For a BMI >= 40: * Overweight * Obesity * Due to excess calories * Drug induced * Due to other cause * Severe or Morbid Obesity Use of terms such as suspected, likely, concern for, or probable (associated with a specific diagnosis that is being evaluated, monitored, or treated as if it exists) are acceptable and can be coded in the inpatient setting, when documented at the time of discharge. Thank you, Martine Haney [facility], CDIS Extension: [phone] Please use your independent medical judgment in providing your response. THIS QUERY IS PART OF THE PERMANENT MEDICAL RECORD Provider Response: Other Other Diagnosis: morbid obesity
[2022-03-31] MEDS: buPROPion HCl XL 150 MG TAB.ER.24H PO (08:41)
[2022-03-31] MEDS: Heparin Sodium,Porcine 5,000 UNIT/ML VIAL 5000 UNIT SUBCUT (08:41)
[2022-03-31] MEDS: lamoTRIgine 100 MG TABLET 200 MG PO (08:41)
[2022-03-31] MEDS: 0.9 % Sodium Chloride Flush 3 ML SYRINGE IVFLUSH ×2 (08:45→20:43)
[2022-03-31] MEDS: Acetaminophen 325 MG TABLET 650 MG PO (10:54)
[2022-03-31 11:08] VITALS: BP 106/59; PULSE 93; RESP 16; TEMP 36.7; O2SAT 96
--- NOTE | 2022-03-31 11:36 | MHC.CM.PN ---
PLAN IS MANAGEMENT OF PAIN AND DC HOME - SELF CARE. CASE MANAGEMENT FOLLOWING FOR ANY DC NEEDS.
--- NOTE | 2022-03-31 11:37 | HO.PM.IMPN ---
Subjective Subjective Date of Service: 03/31/22 Interval History: cc: left flank pain interval history: improved with pain meds Cardiovascular Cardiovascular: Reports no additional cardiovascular complaints Respiratory Respiratory: Reports no additional respiratory complaints Physical Exam Vital Signs: Vital Signs: Last Vital Signs Temp 98.1 F 03/31/22 11:08 Pulse 93 03/31/22 11:08 Resp 16 03/31/22 11:08 BP 106/59 L 03/31/22 11:08 Pulse Ox 96 03/31/22 11:08 O2 Del Method 03/31/22 11:08 BMI result Body Mass Index 43.1 General: AO X 3, no acute distress Resp: CTA bilateral, no accessory muscles used CVS: S1,S2,RRR GI: soft, non tender, non distended Neuro: motor grossly intact, alert Psych: appropriate affect, appropriate insight Objective Data Active Medications Acetaminophen (Acetaminophen 325 Mg Tablet) 650 mg PO Q6H PRN PRN Reason: Pain, Mild (Pain Scale 1-3) Last Admin: 03/31/22 10:54 Dose: 650 mg Documented By: BERTA Bupropion HCl (Bupropion Hcl Xl 150 Mg Tab.Er.24h) 150 mg PO DAILY [facility] Last Admin: 03/31/22 08:41 Dose: 150 mg Documented By: BERTA Heparin Sodium (Porcine) (Heparin Sodium,Porcine 5,000 Unit/Ml Vial) 5,000 unit SUBCUT Q8H [facility] Last Admin: 03/31/22 08:41 Dose: 5,000 unit Documented By: BERTA Hydromorphone HCl (Hydromorphone Hcl 1 Mg/Ml Syringe) 0.5 mg IVPUSH Q4H PRN; Protocol PRN Reason: Pain, Severe (Pain Scale 7-10) Last Admin: 03/30/22 22:06 Dose: 0.5 mg Documented By: MARCO Hydroxyzine HCl (Hydroxyzine Hcl 25 Mg Tablet) 25 mg PO BID PRN PRN Reason: anxiety Ceftriaxone Sodium 1 gm/ (Sodium Chloride) 50 mls @ 100 mls/hr IV Q24H [facility] Last Infusion: 03/30/22 22:46 Dose: 0 mls/hr Documented By: MARCO Lamotrigine (Lamotrigine 100 Mg Tablet) 200 mg PO DAILY [facility] Last Admin: 03/31/22 08:41 Dose: 200 mg Documented By: BRETA Melatonin (Melatonin 3 Mg Tablet) 6 mg PO BEDTIME PRN PRN Reason: Insomnia Senna (Sennosides 8.6 Mg Tablet) 17.2 mg PO BEDTIME PRN PRN Reason: Constipation Sodium Chloride (0.9 % Sodium Chloride Flush 3 Ml Syringe) 3 ml IVFLUSH QSHIFT [facility] Last Admin: 03/31/22 08:45 Dose: 3 ml Documented By: BERTA Trazodone HCl (Trazodone Hcl 25 Mg Halftab) 25 mg PO BEDTIME [facility] Last Admin: 03/30/22 22:07 Dose: 25 mg Documented By: MARCO Comments: pt wanted it around 2200 Labs CBC & Chem 7: 03/31/22 05:26 03/31/22 05:26 Labs: Laboratory Results - last 24 hr 03/31/22 03/31/22 05:26 05:26 MCV 88.4 MCH 27.6 MCHC 31.3 RDW 13.3 Plt Count 268 MPV 11.7 Absolute Nucleated RBC 0.000 Nucleated RBC % (auto) 0.0 Anion Gap 15 Estim Creat Clear Calc 157.5 Estimated GFR > 60 Fasting Glucose 88 Calcium 8.2 L Microbiology Microbiology Results: Microbiology 03/29/22 20:00 Urine Culture - Final Urine clean catch - Urine amador top Escherichia coli 03/29/22 19:25 Blood Culture - Preliminary Blood - Venous No growth after 24 hours. 03/29/22 19:25 Blood Culture - Preliminary Blood - Venous No growth after 24 hours. Assessment and Plan (1) Abdominal pain: Status: Acute Plan 31 F presented with left flank pain and fevers, CT imaging with nonopbstructing left renal stone and question of ileus acute left pyelonephritis associated with non obstructing stone rocephin, urine culture groiwing pansensitive ecoli follow up gu imaging with suspicion of ileus still no bm advance to full liquid bipolar buproprion, lamictal morbid obesity weight loss vte prophylaxis - lovenox full code reason for continued hospitalization: ongoing pain, awaiting return of bowel function Quality Stroke Does the patient have a stroke diagnosis?: No VTE Prior VTE?: No VTE Risk Level:: Medical - moderate - high VTE Device Contraindication: Treatment Not Indicated VTE Drug Contraindication: N/A - Med Ordered
[2022-03-31] MEDS: oxyCODONE HCl Immed Release 5 MG TABLET PO ×2 (15:21→20:43)
[2022-03-31 16:00] VITALS: BP 112/59; PULSE 86; RESP 16; TEMP 36.9; O2SAT 96
[2022-03-31] MEDS: Ketorolac Tromethamine 15 MG/ML VIAL IVPUSH (16:18)
[2022-03-31] MEDS: Enoxaparin Sodium 40 MG/0.4 ML SYRINGE SUBCUT (16:19)
[2022-03-31 19:45] VITALS: BP 108/60; PULSE 88; RESP 16; TEMP 36.4; O2SAT 98
[2022-03-31] MEDS: cefTRIAXone sodium 1 GM in 0.9 % Sodium Chloride 50 ML IV (20:43)
[2022-03-31] MEDS: traZODone HCL 25 MG HALFTAB PO (20:43)
[2022-03-31 23:38] VITALS: BP 109/58; PULSE 78; RESP 17; TEMP 36.4; O2SAT 97
[2022-04-01 03:49] VITALS: BP 111/57; PULSE 83; RESP 17; TEMP 36.8; O2SAT 94
[2022-04-01] MEDS: Enoxaparin Sodium 40 MG/0.4 ML SYRINGE SUBCUT (06:06)
[2022-04-01] MEDS: oxyCODONE HCl Immed Release 5 MG TABLET PO ×2 (06:09→10:11)
[2022-04-01 07:46] VITALS: BP 117/79; PULSE 91; RESP 18; TEMP 36.4; O2SAT 96
[2022-04-01] MEDS: buPROPion HCl XL 150 MG TAB.ER.24H PO (08:55)
[2022-04-01] MEDS: lamoTRIgine 100 MG TABLET 200 MG PO (08:55)
[2022-04-01] MEDS: 0.9 % Sodium Chloride Flush 3 ML SYRINGE IVFLUSH (08:55)
--- NOTE | 2022-04-01 09:37 | P.DS_ITS ---
DS: Providers Provider Date of Service: 04/01/22 Date of admission: 03/29/22 23:50 Primary care physician: Unknown Physician Consults: 03/29/22 23:50 Consult to General Surgery Routine Consulting Provider: Eric Gallagher Reason for consultation: ileus Consult to Urology Routine Consulting Provider: Terence Quinones Reason for consultation: kidney stone DS: Diagnosis Discharge Diagnosis (1) Abdominal pain: Status: Acute DS: Summary Hospital Course Hospital Course: from initial hpi: Chief Complaint: flank pain ?31-year-old female with a past medical history of obesity, bipolar disorder p resented to the hospital today with a chief complaint of left flank pain.? Patient reports that for the past few days he has been having left flank pain which has been gradually worsening denies any associated nausea vomiting.? Mentions her urine is dark.? Denies any burning or frequency.? Denies any fevers at home.? Mentions that her pain is 10/10 in intensity, nonradiating.? As the symptoms were not improving her decided to come to the ER for further evaluation.? Also reports subjective fevers.? Denies any palpitations.? Denies any chest pains or lightheadedness.? Review of all other systems is negative except mentioned above ER course: Per ER team patient noted to have left flank tenderness; urinalysis abnormal consistent with UTI; CT scan showed kidney stone- nonobstructing also noted to have ileus.? Admitted for further management. hospital course: patient was admitted for acute left pyelonephritis assoicated with non obstructing stone. she was treated with rocephin, urine culture grew pansensitive ecoli. symptoms improved she will be discharged on ceftin. on imaging there was suspicion of ileus, she was seen by surgery, paitent appeared asypmtomatic and tolerated diet. for her bipolar disorder she was treated with lamictal, buprorion. for morbid obesity weight loss recommended. Time Spent with Patient Time attestation: Total time spent providing and/or coordinating discharge services: Discharge coordination time: Greater than 30 minutes Quality: Safe Use of Opioids Does Pt have an Active Cancer Diagnosis on the Problem List?: No Quality: Stroke Does the patient have a stroke diagnosis?: No Physical Exam Vital Signs: Vital Signs: Last Vital Signs Temp 97.6 F 04/01/22 07:46 Pulse 91 04/01/22 07:46 Resp 18 04/01/22 07:46 BP 117/79 04/01/22 07:46 Pulse Ox 96 04/01/22 07:46 O2 Del Method 04/01/22 07:46 BMI result Body Mass Index 43.1 General: AO X 3, no acute distress Resp: CTA bilateral, no accessory muscles used CVS: S1,S2,RRR GI: soft, non tender, non distended Neuro: motor grossly intact, alert Psych: appropriate affect, appropriate insight DS: Data Data Completed and Pending Labs on day of discharge: Preliminary micro results at discharge 03/29/22 19:25 Blood Culture - Preliminary Blood - Venous No growth after 48 hours. 03/29/22 19:25 Blood Culture - Preliminary Blood - Venous No growth after 48 hours. Discharge Plan Discharge Patient Disposition: Home, Self-Care Discharge Diagnosis: uti Referrals: Physician,Unknown J [Primary Care Provider] - 1 Week Discharge Medications: New oxycodone 5 mg Tablet 5 mg PO Q4H PRN (Reason: moderate pain) Qty: 10 0RF Rx Instructions: Partial Fill upon patient request. cefuroxime axetil 500 mg tablet 500 mg PO BID Qty: 10 0RF Continued cyclobenzaprine 10 mg tablet 1 tab PO TID PRN (Reason: muscle spasm) lamotrigine 200 mg tablet 1 tab PO DAILY trazodone 50 mg tablet 0.5 tab PO BEDTIME ferrous sulfate 325 mg (65 mg iron) tablet 1 tab PO TID hydroxyzine HCl 25 mg tablet 1 tab PO BID PRN (Reason: anxiety) diclofenac sodium 50 mg tablet,delayed release (DR/EC) 1 tab PO TID bupropion HCl 150 mg tablet extended release 24 hr 1 tab PO DAILY Discharge Orders: Discharge Order (Routine); Ordered 04/01/22 Ordered By: Young Moon Diet: Advance to usual diet Activity on Discharge: As tolerated Stand Alone Forms: Patient Portal Discharge page Care Plan Goals: recovery Health Concerns: pyelo Plan of Treatment: 5 days ceftin Assessment: see above
--- NOTE | 2022-04-01 09:45 | MHC.CM.PN ---
PATIENT IS MEDICALLY CLEARED FOR DISCHARGE TODAY; DISCHARGE DISPOSITION IS HOME SELF-CARE. PATIENT WILL ARRANGE TRANSPORTATION.
--- NOTE | 2022-04-01 09:46 | MHC.CM.PN ---
Plan for patient to D/C home today, no services.
== END 2022-04-01 10:32 | disposition home or self-care (01) | DRG 463 ==
LOC: HO.ED 22:07 → HO.EDOVER 03-30 00:08 → HO.S3 03-30 00:32
PROVIDERS: Emergency Medicine; Admitting Provider Hospitalist; Emergency Provider Emergency Medicine Emergency Medical Services; PCP Internal Medicine; Visit Provider Internal Medicine
DX: N10 Acute pyelonephritis (principal); K56.7 Ileus, unspecified; B96.20 Unspecified Escherichia coli [E. coli] as the cause of diseases classified elsewhere; N20.0 Calculus of kidney; E66.01 Morbid (severe) obesity due to excess calories; F31.9 Bipolar disorder, unspecified; Z68.41 Body mass index [BMI] 40.0-44.9, adult; Z56.0 Unemployment, unspecified; Z88.5 Allergy status to narcotic agent; Z79.899 Other long term (current) drug therapy
CPT/HCPCS: 36415; 74176; 80048; 80053; 81001; 81025; 82248; 83605; 85025; 85027; 87040; 87086; 87088; 87186; 87635; 93005; 99285; J0696; J1170; J1650; J1885; J2270; J2405

== ENCOUNTER 2023-11-28 10:53 | Emergency (ER) | payer OTHER, SELFPAY ==
--- NOTE | ~2023-11-28 | XR_ITS ---
EXAMINATION: XR CHEST CLINICAL INFORMATION: Chest pain. COMPARISON: None available. TECHNIQUE: Frontal view of the chest was obtained. FINDINGS: Heart size is normal. There is no gross pneumothorax. No significant pleural effusion. Mild asymmetric subtle hazy opacity overlying the lower right lung may represent an infectious/inflammatory process. Heart size is normal. XR/XR chest 1V IMPRESSION: Mild asymmetric subtle hazy opacity overlying the lower right lung may represent an infectious/inflammatory process. This study was presented today November 28, 2023 for interpretation. Stat results provided at this time as requested by referring provider.
--- NOTE | 2023-11-28 10:56 | ECG_ITS ---
Test Reason : chest pain Blood Pressure : / mmHG Vent. Rate : 090 BPM Atrial Rate : 090 BPM P-R Int : 156 ms QRS Dur : 082 ms QT Int : 334 ms P-R-T Axes : 031 039 021 degrees QTc Int : 408 ms Normal sinus rhythm Normal ECG When compared with ECG of 29-MAR-2022 19:18, No significant change was found Referred By: Generic ED Physician Electronically Signed By:CYNDY DIAZ
[2023-11-28 11:14] VITALS: BP 113/71; PULSE 93; RESP 20; TEMP 36.6; O2SAT 98; BMI 41.9
[2023-11-28 11:27] LABS: MANUAL DIFF FLAG NO
[2023-11-28 11:28] LABS: Basophils Percent Auto 0.6 % (0-2); Eosinophils Percent Auto 0.6 % (0-4); Hematocrit 39.9 % (37.0-47.0); Hemoglobin 12.7 g/dl (12.0-16.0); Imm Gran Abs Auto 0.02 X10*3/uL (0.00-0.03); Imm Gran Pct Auto 0.3 % (0.0-0.4); Lymphocytes Absolute Auto 1.8 X10*3/uL (1.2-4.9); Lymphocytes Percent Auto 25.4 % (20-40); Mean Corpuscular HGB Conc 31.8 g/dl (31.0-35.0); Mean Corpuscular Hemoglobin 28.3 pg (27.0-33.0); Mean Corpuscular Volume 89.1 fL (80.0-98.0); Mean Platelet Volume 10.9 fL (9.4-12.3); Monocytes Absolute Auto 0.5 X10*3/uL (0.1-1.2); Monocytes Percent Auto 7.5 % (2-11); Neutrophils Absolute Auto 4.5 x10*3/uL (2.0-8.3); Neutrophils Percent Auto 65.6 % (45-73); Platelet Count 285 X10*3/uL (160-400); Red Blood Count 4.48 X10*6/uL (4.20-5.50); Red Cell Distribution Width 13.4 % (11.0-16.0); White Blood Count 6.9 X10*3/uL (4.8-10.8)
[2023-11-28 11:41] LABS: Alanine Aminotransferase 11 U/L (0-31); Albumin Level 4.3 g/dL (3.5-5.0); Alkaline Phosphatase 63 U/L (39-117); Anion Gap 11 (12-20); Aspartate Amino Transferase 13 U/L (5-31); Bilirubin Direct 0.2 mg/dL (0.0-0.5); Bilirubin Total 0.5 mg/dL (0.0-1.0); Blood Urea Nitrogen 17 mg/dL (9-16); Calcium 9.8 mg/dL (8.4-10.2); Carbon Dioxide 25 mmol/L (22-29); Chloride 109 mmol/L (96-108); Creatinine Clr Calc Pharmacy 135.1; Estimated Glomerular Filt Rate > 60; Glucose Random 91 mg/dL (60-115); Lipase 40 U/L (8-78); Potassium 4.1 mmol/L (3.3-5.1); Sodium 141 mmol/L (135-145); Total Protein 7.6 g/dL (6.5-8.0)
[2023-11-28 11:51] LABS: Troponin-I High Sensitivity < 2.7 ng/L (<3.5-17.0)
--- NOTE | 2023-11-28 17:26 | ED_ITS ---
HPI - Chest Pain General Chief Complaint: Chest Pain Stated Complaint: Chest Pain Time Seen by Provider: 11/28/23 16:51 Source: patient Mode of arrival: ambulatory Limitations: no limitations History of Present Illness HPI narrative: Patient comes to the emergency room complaining of midsternal chest pain that started 24 hours ago. Patient states she has a bit of a headache. Patient denies any shortness of breath, denies palpitations. Related Data Home Medications ?Medication ?Instructions ?Recorded ?Confirmed bupropion HCl 150 mg 24 hr tablet, 1 tab PO DAILY 03/30/22 03/30/22 extended release cyclobenzaprine 10 mg tablet 1 tab PO TID PRN muscle spasm 03/30/22 03/30/22 diclofenac sodium 50 mg 1 tab PO TID 03/30/22 03/30/22 tablet,delayed release ferrous sulfate 325 mg (65 mg 1 tab PO TID 03/30/22 03/30/22 iron) tablet hydroxyzine HCl 25 mg tablet 1 tab PO BID PRN anxiety 03/30/22 03/30/22 lamotrigine 200 mg tablet 1 tab PO DAILY 03/30/22 03/30/22 trazodone 50 mg tablet 0.5 tab PO BEDTIME 03/30/22 03/30/22 Previous Rx's ?Medication ?Instructions ?Recorded cefuroxime axetil 500 mg tablet 500 mg PO BID #10 tabs 04/01/22 oxycodone 5 mg tablet 5 mg PO Q4H PRN moderate pain #10 04/01/22 tabs Allergies Allergy/AdvReac Type Severity Reaction Status Date / Time codeine AdvReac Nausea and Verified 11/28/23 11:15 Vomiting Review of Systems 2 Review of Systems: Constitutional : No Weight loss, No Fever, No Chills, No Night Sweats, No Fatigue, No Malaise ENT/Mouth : No Hearing loss, No Ear Pain, No Nasal Congestion, No Sinus Pain, No Hoarseness, No sore throat, No Rhinorrhea, No Swallowing Difficulty Eyes: No Eye Pain, No Swelling, No Redness, No Foreign Body, No Discharge, No Vision Changes Cardiovascular : Complaining of substernal Chest Pain, No SOB, No Dyspnea on Exertion, No Orthopnea, No Edema, No Palpitations Respiratory : No Cough, No Sputum, No Wheezing, No Smoke Exposure, No Dyspnea Gastrointestinal : No Nausea, No Vomiting, No Diarrhea, No Constipation, No abdominal Pain, No Hematochezia, No Melena Genitourinary : no irregular bleeding, No Dysuria, No Urinary Frequency, No Hematuria, No Urinary Incontinence, No Urgency, No Flank Pain, No Urinary Flow Changes, No Hesitancy Musculoskeletal : No joint pain, No Myalgias, No Joint Swelling Skin : No Skin Lesions, No rash Neuro : No Weakness, No Numbness, No Paresthesias, No Loss of Consciousness, No Dizziness, No Headache Psych : No Anxiety/Panic, No Depression, No SI/HI/AH/VH, No Social Issues, Heme/Lymph: No Bruising, No Bleeding,No Lymphadenopathy Endocrine : No Polyuria, No Polydipsia, No Temperature Intolerance [facility] Past Medical History Medical History Ileus Social History Social History Household Members: Family Household Members Other:: [employer] CHILDREN Housing: House Do you presently have visiting nurse or other home services: No Patient Tobacco Use Status: Never used Tobacco e-Cigarette/Vaping Use: Never Used Second Hand Smoke Exposure: No Advance Directives: No Do you have a plan to hurt others: No Plan service: No Current occupational status: unemployed Physical Exam 2 Vital Signs: Vital Signs: Last Vital Signs Temp 98.4 F 11/28/23 17:45 Pulse 81 11/28/23 17:45 Resp 22 H 11/28/23 17:45 BP 122/72 11/28/23 17:45 Pulse Ox 98 11/28/23 17:45 O2 Del Method Room Air 11/28/23 17:45 BMI result Body Mass Index 41.9 Const: Other: Appearance: Alert. Oriented X3. No acute distress. Well-appearing Eyes: Pupils equal, round and reactive to light. ENT: Pharynx normal. Neck: Normal inspection. Neck supple. No lymph nodes noted. No crepitus CVS: Normal heart rate and rhythm. Pulses normal. Normal S1 and S2 Respiratory: No respiratory distress. Breath sounds normal. No Wheezing. No rales Abdomen: Soft and nontender. No rigidity. No distention. Skin: Skin warm and dry. Normal skin color. Normal skin turgor. Extremities: No lower extremity edema. No Lacerations. No Rash Neuro: Oriented X 3. No motor deficit. No sensory deficit. Moving all extremities. No slurred speech. CN 2 through 12 grossly intact Psych: calm, cooperative, normal affect Medical Decision Making Medical Decision Making [facility] Narrative: My interpretation of x-ray: No acute abnormality. However, radiology reported an overlying haziness over the right lower lobe, infectious versus inflammatory process. Patient has no URI symptoms. Likely inflammatory process. -my interpretation of EKG: Normal sinus rhythm, heart rate 90, no ST segment patient elevation, no T-wave inversion, QTC 408 -wells criteria score for pulmonary embolism is 0 -patient is asymptomatic at this time. Patient denies any URI symptoms. -given patient's onset of symptoms, the allergic findings, and workup, patient likely has pleurisy Differential Diagnosis Differential Diagnoses: The differential diagnosis associated with the presentation includes (Pleurisy, NSTEMI, ACS, musculoskeletal) Admission/Observation Consideration of admission/observation: Escalation of care including admission/observation considered Lab Data [facility] Lab Attestation statement: I reviewed the patient's lab results. 11/28/23 11:20 11/28/23 11:20 Labs: Lab Results 11/28/23 Range/Units 11:20 WBC 6.9 (4.8-10.8) X10*3/uL RBC 4.48 (4.20-5.50) X10*6/uL Hgb 12.7 D (12.0-16.0) g/dl Hct 39.9 (37.0-47.0) % MCV 89.1 (80.0-98.0) fL MCH 28.3 (27.0-33.0) pg MCHC 31.8 (31.0-35.0) g/dl RDW 13.4 (11.0-16.0) % Plt Count 285 (160-400) X10*3/uL MPV 10.9 (9.4-12.3) fL Immature Gran % (Auto) 0.3 (0.0-0.4) % Neut % (Auto) 65.6 (45-73) % Lymph % (Auto) 25.4 (20-40) % [place] % (Auto) 7.5 (2-11) % Eos % (Auto) 0.6 (0-4) % Baso % (Auto) 0.6 (0-2) % Lymph # (Auto) 1.8 (1.2-4.9) X10*3/uL [place] # (Auto) 0.5 (0.1-1.2) X10*3/uL Eos # (Auto) 0.0 (0.0-0.4) X10*3/uL Baso # (Auto) 0.0 (0.0-0.2) X10*3/uL Abs Immat Gran (auto) 0.02 (0.00-0.03) X10*3/uL Absolute Neuts (auto) 4.5 (2.0-8.3) x10*3/uL Absolute Nucleated RBC 0.000 (0.0-0.012) X10*3/uL Nucleated RBC % (auto) 0.0 (0.0-0.2) /100WBC Sodium 141 (135-145) mmol/L Potassium 4.1 (3.3-5.1) mmol/L Chloride 109 H (96-108) mmol/L Carbon Dioxide 25 (22-29) mmol/L Anion Gap 11 L (12-20) BUN 17 H (9-16) mg/dL Creatinine 0.80 (0.5-1.4) mg/dL Estim Creat Clear Calc 135.1 Estimated GFR > 60 Random Glucose 91 (60-115) mg/dL Calcium 9.8 D (8.4-10.2) mg/dL Total Bilirubin 0.5 (0.0-1.0) mg/dL Direct Bilirubin 0.2 (0.0-0.5) mg/dL AST 13 (5-31) U/L ALT 11 (0-31) U/L Alkaline Phosphatase 63 (39-117) U/L Troponin I High Sens < 2.7 (<3.5-17.0) ng/L Total Protein 7.6 (6.5-8.0) g/dL Albumin 4.3 (3.5-5.0) g/dL Lipase 40 (8-78) U/L Independent Interpretation I performed an independent interpretation of an: Plain X-Ray Radiology Impression Discussion of test interpretation with radiology: I have reviewed the radiologist's reading. Radiologist Impression: FINDINGS: Heart size is normal. There is no gross pneumothorax. No significant pleural effusion. Mild asymmetric subtle hazy opacity overlying the lower right lung may represent an infectious/inflammatory process. Heart size is normal. XR/XR chest 1V IMPRESSION: Mild asymmetric subtle hazy opacity overlying the lower right lung may represent an infectious/inflammatory process. This study was presented today November 28, 2023 for interpretation. Stat results provided at this time as requested by referring provider. Critical Care Time Critical Care Time Critical Care Time: Yes Total Critical Care Time: 35 Attestation: I have personally provided critical care time. Time includes review of lab data, radiology results, discussion with consultants, and monitoring for potential decompensation. Intervention performed as documented. Discharge Plan Discharge Clinical Impression: Atypical chest pain Patient Disposition: Home, Self-Care Instructions: Chest Pain (ED) Prescriptions: No Action cyclobenzaprine 10 mg tablet 1 tab PO TID PRN (Reason: muscle spasm) lamotrigine 200 mg tablet 1 tab PO DAILY trazodone 50 mg tablet 0.5 tab PO BEDTIME ferrous sulfate 325 mg (65 mg iron) tablet 1 tab PO TID hydroxyzine HCl 25 mg tablet 1 tab PO BID PRN (Reason: anxiety) diclofenac sodium 50 mg tablet,delayed release (DR/EC) 1 tab PO TID bupropion HCl 150 mg tablet extended release 24 hr 1 tab PO DAILY oxycodone 5 mg Tablet 5 mg PO Q4H PRN (Reason: moderate pain) Qty: 10 0RF Rx Instructions: Partial Fill upon patient request. cefuroxime axetil 500 mg tablet 500 mg PO BID Qty: 10 0RF Print Language: Persian
[2023-11-28 17:45] VITALS: BP 122/72; PULSE 81; RESP 22; TEMP 36.9; O2SAT 98
[2023-11-28 18:25] LABS: Troponin-I High Sensitivity < 2.7 ng/L (<3.5-17.0)
[2023-11-28 18:34] VITALS: BP 120/71; PULSE 83; RESP 19; TEMP 36.2; O2SAT 99
== END 2023-11-28 18:34 | disposition home or self-care (01) ==
PROVIDERS: Emergency Provider Emergency Medicine; PCP Internal Medicine
DX: R07.89 Other chest pain (principal)
CPT/HCPCS: 36415; 71045; 80048; 80076; 83690; 84484; 85025; 93005; 99283; 99284

== ENCOUNTER → 2023-11-28 10:56 | Outpatient (BNV) | payer OTHER, SELFPAY | PROVIDERS: Emergency Provider Emergency Medicine; PCP Internal Medicine; Visit Provider Internal Medicine | DX: R07.9 Chest pain, unspecified (principal) | CPT/HCPCS: 93010 ==